=== PATIENT | female | born 1995 | race African-American/Black ===

== ENCOUNTER 2022-01-06 18:03 | Emergency (ER) | payer OTHER, MEDICAID ==
[~2022-01-06] VITALS: Ht 170.2 cm; Wt 69.9 kg
[2022-01-06 22:30] VITALS: BP 120/84
== END 2022-01-06 22:39 | disposition home or self-care (01) ==
LOC: ER 18:03
DX: O20.0 Threatened abortion (principal); Z3A.01 Less than 8 weeks gestation of pregnancy
CPT/HCPCS: 36415; 84702